=== PATIENT | male | born 1965 | race Caucasian/White ===

== ENCOUNTER → 2016-09-11 | Outpatient (CLI) | payer BC ==
[~2016-09-11] MED LIST: LORTAB 5/500 501 TAB PO; SERTRALINE 50MG50 MG PO; VICOPROFEN 7.51 TAB PO
--- NOTE | 2016-09-11 12:18 | RADIOLOGY REPORT PS360 ---
CLAVICLE-RT Ordering Physician: Davis Dempsey MD Patient Age: 50 years: Male HISTORY: RT SHOULDER PAIN,CLAVICLE JOINT PAIN TECHNIQUE: AP and 15 degree angle views right clavicle. Right shoulder from today as well as right shoulder October 2009 FINDINGS . Right clavicle appears intact with no fracture evident. Normal relationships at the AC joint with some mild progression of arthritic changes at AC joint and compared to 2010. Right lung apex clear and unremarkable. Small rudimentary cervical ribs processes noted to the right of C7-measures 17 mm length IMPRESSION: Degenerative changes AC joint which have shown slight progression since 2009 The right clavicle itself is intact. Small rudimentary cervical rib to the right of C7 measuring 17 mm length noted
--- NOTE | 2016-09-11 23:02 | RADIOLOGY REPORT PS360 ---
[id number] VIEWS Ordering Physician: Davis Dempsey MD Patient Age: 50 years: Male HISTORY: RT SHOULDER PAIN,CLAVICLE JOINT PAIN TECHNIQUE: . 3 views right shoulder COMPARISON is made to previous right shoulder study from October 2009 FINDINGS No fracture nor dislocation. Glenohumeral joint intact. Mild degenerative changes AC joint a shown slight progression since 2009. Bones well mineralized. Humeral head and neck appear intact. Scant bladder unremarkable. The partially imaged uppermost right ribs partially imaged right lung right apex unremarkable IMPRESSION: Right shoulder intact with no acute finding Only minor degenerative changes at the right AC joint which are shown slight progression 2009 evident radiographically..
== END ==
LOC: RAD 11:29
DX: M25.511 Pain in right shoulder (principal)

== ENCOUNTER → 2017-04-13 | Outpatient (CLI) | payer BC ==
--- NOTE | 2017-04-13 14:50 | RADIOLOGY REPORT PS360 ---
[id number] VIEWS HISTORY: RT SHOULDER PAIN Patient Age: 51 years: Male Ordering Physician: Davis Dempsey MD TECHNIQUE: 3 views right shoulder COMPARISON :August 2016 right shoulder FINDINGS The right humeral head and neck is intact. Glenohumeral joint is intact. . No acute findings and no significant change since August 2016. Mild AC joint arthropathy again noted. Right lung apex and upper right ribs are clear. Right scapular unremarkable. IMPRESSION: Stable right shoulder no acute findings. Mild AC joint arthropathy
== END ==
LOC: RAD 14:23
DX: M25.511 Pain in right shoulder (principal)